=== PATIENT | male | born 1955 | race Caucasian/White ===

== ENCOUNTER → 2016-11-20 | Outpatient (CLI) | payer BC ==
[~2016-11-20] MED LIST: GADOBUTROL 10 ML VIAL IVP ONE
== END ==
LOC: FIMAGING 12:51
PROVIDERS: ATTEND Specialist
DX: N50.89 Other specified disorders of the male genital organs (principal)
CPT/HCPCS: A9585

== ENCOUNTER → 2017-12-10 | Outpatient (CLI) | payer BC | LOC: FIMAGING 07:49 | PROVIDERS: ATTEND Specialist | DX: C61 Malignant neoplasm of prostate (principal) | CPT/HCPCS: A9585 ==